=== PATIENT | female | born 1975 | race Caucasian/White ===

== ENCOUNTER 2018-02-12 10:39 | Day surgery (SDC) | payer BC ==
[~2018-02-12 10:39] MED LIST: DILAUDID IV PRN; ZOFRAN IV PRN
[2018-02-12] MEDS ORDERED: VERSED IV NR (11:00)
[2018-02-12] MEDS ORDERED: LACTATED RINGERS 1,000 ML IV SCH ×2 (11:00)
--- NOTE | 2018-02-12 11:29 | Anesthesia Consultation ---
Anesthesia Consult and Med Hx Date of service: 02/12/18 - Airway Anesthetic Teeth Evaluation: Good ROM Head & Neck: Adequate Mental/Hyoid Distance: Adequate Mallampati Class: Class I Intubation Access Assessment: Good - Pulmonary Exam CTA: Yes - Cardiac Exam Cardiac Exam: No Murmur - Pre-Operative Health Status ASA Pre-Surgery Classification: ASA2 Proposed Anesthetic Plan: General - Pre-Anesthesia Comment Pre-Anesthesia Comments: Acute Intermittent Porphyria. Hepatic Disease. Liver Disease. Anxiety - Pulmonary Hx Smoking: No Hx Asthma: No COPD: No - Cardiovascular System Hx Hypertension: No Hx Coronary Artery Disease: No - Central Nervous System Hx Seizures: No Hx Back Pain: Yes Hx Psychiatric Problems: Yes - Gastrointestinal Hx Gastroesophageal Reflux Disease: No - Endocrine Hx Renal Disease: Yes Hx Liver Disease: Yes - Other Systems Hx Alcohol Use: No Hx Substance Use: No Hx Cancer: No
--- NOTE | 2018-02-12 11:29 | Anesthesia Day of Surgery ---
Anesthesia Day of Surgery - Day of Surgery Patient Examined: Yes Patient H&P Reviewed: Yes Patient is NPO: Yes
[2018-02-12] MEDS ORDERED: ceFAZolin 2 GM in NACL 0.9% 100 ML IV ONE (12:21)
[2018-02-12] MEDS ORDERED: XYLOCAINE MPF 2% ONE (13:00)
[2018-02-12] MEDS ORDERED: ANCEF/STERILE WATER 2 GM/20 ML 2 GM/20 ML SYRINGE IV ONE (13:00)
--- NOTE | 2018-02-12 13:10 | Post Anesthesia Evaluation ---
- Post Anesthesia Evaluation Patient Participated: Yes Airway Patent: Yes Stable Respiratory Function: Yes Nausea/Vomiting: No Temp > 96.8F: Yes Pain Manageable: Yes Adequeate Hydration: Yes Anesthesia Complications: No
[2018-02-12] MEDS ORDERED: XYLOCAINE 1% 20 mL ONE (13:13)
[2018-02-12] MEDS ORDERED: HEPARIN 10,000 UNITS/10 ML ONE (13:14)
[2018-02-12] MEDS ORDERED: NACL 0.9% 250ML 0 ML ONE (13:14)
[2018-02-12] MEDS ORDERED: MARCAINE 0.25% INFILTRATI ONE ×2 (13:14→14:37)
[2018-02-12] MEDS ORDERED: D50W (25GM) Syringe IV ONE (13:47)
[2018-02-12] MEDS ORDERED: SUBLIMAZE ONE (13:48)
[2018-02-12] MEDS ORDERED: DIPRIVAN 10 MG/ML IV ONE ×3 (13:48→14:26)
[2018-02-12] MEDS ORDERED: NACL 0.9% 100 ML ONE (13:56)
[2018-02-12] MEDS ORDERED: KETALAR ONE (14:05)
[2018-02-12] MEDS ORDERED: HEPARIN 10,000 UNITS/10 ML IV ONE (14:34)
[2018-02-12] MEDS ORDERED: NACL 0.9% IR ONE (14:34)
[2018-02-12] MEDS ORDERED: NACL 0.9% IV ONE (14:35)
[2018-02-12] MEDS ORDERED: XYLOCAINE 1% 20 mL INFILTRATI ONE (14:36)
--- NOTE | 2018-02-12 15:13 | Fluoroscopy Report ---
Portable chest: Line placement. A port is in place on the left. The line enters the left jugular vein and the tip is in the low SVC. Mediastinal contour is unremarkable. The lungs are clear and fully inflated. Compression: Well-positioned port with no apparent complication.
--- NOTE | 2018-02-12 15:35 | Short Stay Summary ---
Short Stay Documentation Date of service: 02/12/18 - History Principal diagnosis: acute intermittent porphyria H&P: obtained from office - Allergies and Medications Current Medications: Allergies Sulfa (Sulfonamide Antibiotics) Allergy (Verified 02/09/18 14:05) porphyria attack Home Medications Medication Instructions Recorded Confirmed Last Taken Type FLUoxetine [PROzac] 20 mg PO QDAY 01/05/18 02/12/18 02/11/18 History [place] Carbonate [[place] 450 mg PO DAILY 01/05/18 02/12/18 02/11/18 History Carbonate ER] Active Medications Hydromorphone HCl (Dilaudid) 0.5 mg IV Q10MIN PRN PRN Reason: Pain , Severe (7-10) Stop: 02/12/18 23:59 Lactated Ringer's (Lactated Ringers) 1,000 mls @ 100 mls/hr IV DIRECT GHAZALA Lactated Ringer's (Lactated Ringers) 1,000 mls @ 100 mls/hr IV DIRECT GHAZALA Midazolam HCl (Versed) 2 mg IV PREOP NR Stop: 02/12/18 23:59 Ondansetron HCl (Zofran) 4 mg IV ONCE PRN PRN Reason: Nausea And Vomiting - Brief post op/procedure progress note Date of procedure: 02/12/18 Pre-op diagnosis: acute intermittent porphyria Post-op diagnosis: same Procedure: Placement of left IJ portacath using ultrasound guidance, fluoroscopy Anesthesia: MAC, local Findings: good placement of port without pneumothorax on post op cxr Surgeon: ИВАН GRANDA Estimated blood loss: minimal Pathology: none Condition: stable - Hospital course Hospital course: Patient was observed in PACU and discharged to home when criteria was met. - Disposition Condition at discharge: Good Disposition: DC-01 TO HOME OR SELFCARE Short Stay Discharge Plan Activity: no restrictions, other (avoid heavy lifting with left arm) Diet: regular Wound: open to air, other (may shower tomorrow, pat incisions dry, do not scrub. Do not submerge incisions in bath/hottubs/pools until healed.) Additional Instructions: Call surgeon's office if you have drainage or redness around the incisions. Some redness and bruising is normal. Use ice to the surgical incision site to help with swelling and bruising. Follow up with: MELISA CLEMONS MD [Primary Care Provider] - 7 Days ИВАН GRANDA DO [Staff Physician] - 14 Days Prescriptions: Ibuprofen 800 mg PO Q8H #30 tablet
[2018-02-12] MEDS ORDERED: MOTRIN PO PRN (16:12)
[2018-02-12 17:09] VITALS: BP 126/90
--- NOTE | 2018-02-13 17:11 | Post Anesthesia Evaluation ---
- Post Anesthesia Evaluation Patient Participated: Yes Airway Patent: Yes Stable Respiratory Function: Yes Nausea/Vomiting: No Temp > 96.8F: Yes Pain Manageable: Yes Adequeate Hydration: Yes Anesthesia Complications: No Block Receding Appropriately: Not Applicable Patient on Ventilator: No
--- NOTE | 2018-02-14 18:26 | Operative Report ---
Operative Report Operative Report: Date of procedure: 02/12/18 Pre-op diagnosis: acute intermittent porphyria Post-op diagnosis: same Procedure: Placement of left IJ portacath using ultrasound guidance, fluoroscopy Anesthesia: MAC, local Findings: good placement of port without pneumothorax on post op cxr Surgeon: ИВАН GRANDA Estimated blood loss: minimal Pathology: none Condition: stable HPI and indication: 42 yo F with acute intermittent porphyria was referred by Dr. Griffin, her product line manager for port placement for routine IVF infusions. The patient presents today for placement. All risks, benefits, alternatives to surgery were discussed with the patient and questions answered. Consent was obtained. Procedure in detail: The patient was identified in the preoperative area, taken back to operating room, placed on operating table in supine position. After anesthesia was induced both arms were tucked and upper chest and neck were prepped and draped in usual sterile fashion. A timeout was performed. The patient was placed in Trendelenburg position. Local anesthetic was infiltrated into the skin at the intended puncture site. The left subclavian vein was visualized on ultrasound, and seen as compressible. Access was attempted but the vein was difficult to access because the vein was very small. Therefore, this was aborted and the left internal jugular vein was located on ultrasound and seen as compressible. This was accessed on the first stick. There was return of dark red, nonpulsatile blood. The wire was threaded under fluoroscopy without resistance and positioning confirmed. The needle was then removed. Local anesthetic was infiltrated into the skin and subcutaneous tissue at the intended incision site. Using a 15 blade, an incision was made in the left upper chest and dissection carried down through the skin and subcutaneous tissue using Bovie electrocautery. Hemostasis was achieved along the way. A pocket for the port was then created bluntly and with electrocautery. The catheter was flushed and tunneled from the pocket to the wire. A breakaway catheter/dilator sheath then inserted over the wire under fluoroscopy, and the wire and dilator removed. The catheter was then inserted through the breakaway catheter which was then removed. The catheter sat flush under the skin. Using continuous fluoroscopy, the catheter was pulled back until the tip was visualized in the right atrium. The catheter was then cut to size and the port attached in the usual fashion. The port was then sutured into place to the pre- pectoral fascia using 2-0 Vicryl interrupted sutures. The wound was irrigated and hemostasis ensured. The port was tested with heparinized saline and there was return of blood and it flushed easily. The port was then instilled with 3000 units of heparin. The wound was again irrigated, and hemostasis ensured. The deep dermal layer was then closed with interrupted 3-0 Vicryl stitches. The skin incisions were closed with 4-0 Monocryl subcuticular stitches and skin glue. Intraoperative chest x-ray did show good positioning of the port, without evidence of pneumothorax. At the end of the case, all sponge, instrument, sharp counts were correct 2. The patient was awoken from anesthesia and taken to PACU in stable condition.
== END 2018-02-12 17:10 | disposition home or self-care (01) ==
LOC: OR 10:39
PROVIDERS: ATTEND Surgery
DX: E80.21 Acute intermittent (hepatic) porphyria (principal); F41.9 Anxiety disorder, unspecified; F32.9 Major depressive disorder, single episode, unspecified; Z79.84 Long term (current) use of oral hypoglycemic drugs; Z88.2 Allergy status to sulfonamides; Z98.890 Other specified postprocedural states
CPT/HCPCS: 36561; 76937; 77001; 81025; 82962; C1769; C1788; J0690; J1644; J2250; J2704; J3010; J7120; J7050

== ENCOUNTER 2019-05-03 11:15 | Day surgery (SDC) | payer BC, OTHER ==
[2019-05-03] MEDS ORDERED: SUBLIMAZE IV PRN (12:32)
--- NOTE | 2019-05-03 12:35 | Anesthesia Consultation ---
Anesthesia Consult and Med Hx Date of service: 05/03/19 - Airway Anesthetic Teeth Evaluation: Good ROM Head & Neck: Adequate Mental/Hyoid Distance: Adequate Mallampati Class: Class I Intubation Access Assessment: Good - Pulmonary Exam CTA: Yes - Cardiac Exam Cardiac Exam: RRR - Pre-Operative Health Status ASA Pre-Surgery Classification: ASA3 Proposed Anesthetic Plan: MAC - Pulmonary Hx Smoking: No Hx Respiratory Symptoms: No - Cardiovascular System Hx Hypertension: No Hx Heart Attack/AMI: No - Central Nervous System Hx Seizures: No CVA: No Hx Back Pain: Yes Hx Psychiatric Problems: Yes (anxiety) - Gastrointestinal Hx Gastroesophageal Reflux Disease: No - Endocrine Hx Renal Disease: No Hx Liver Disease: Yes (acute intermittent porphyria) Hx Insulin Dependent Diabetes: No Hx Non-Insulin Dependent Diabetes: No Hx Thyroid Disease: No - Other Systems Hx Obesity: No - Additional Comments Anesthesia Medical History Comments: No hx anesthetic complications. Reviewed anesthesia record from port placement performed 2018. Patient did well with MAC anesthetic with propofol, ketamine, versed and fentanyl without issue.
--- NOTE | 2019-05-03 12:35 | Anesthesia Day of Surgery ---
Anesthesia Day of Surgery - Day of Surgery Patient Examined: Yes Patient H&P Reviewed: Yes Patient is NPO: Yes
[2019-05-03] MEDS ORDERED: LACTATED RINGERS 1,000 ML IV SCH (13:00)
[2019-05-03] MEDS ORDERED: VERSED IV NR (13:00)
[2019-05-03] MEDS ORDERED: XYLOCAINE 1% 20 mL ONE (13:01)
[2019-05-03] MEDS ORDERED: MARCAINE 0.25% INFILTRATI ONE ×2 (13:01→13:32)
[2019-05-03] MEDS ORDERED: SUBLIMAZE ONE (13:07)
[2019-05-03] MEDS ORDERED: VERSED ONE (13:07)
[2019-05-03] MEDS ORDERED: KETAMINE 50 MG/ML-WATER SYRING ONE (13:08)
[2019-05-03] MEDS ORDERED: DIPRIVAN 10 MG/ML IV ONE (13:08)
[2019-05-03] MEDS ORDERED: NACL 0.9% IR ONE (13:33)
--- NOTE | 2019-05-03 13:53 | Short Stay Summary ---
Short Stay Documentation Date of service: 05/03/19 - History Principal diagnosis: acute porphyria H&P: obtained from office - Allergies and Medications Current Medications: Allergies Sulfa (Sulfonamide Antibiotics) Allergy (Verified 02/09/18 14:05) porphyria attack Home Medications Medication Instructions Recorded Confirmed Last Taken Type FLUoxetine [PROzac] 20 mg PO QDAY 01/05/18 05/03/19 05/01/19 09:00 History [place] Carbonate [[place] 450 mg PO DAILY 01/05/18 05/03/19 05/01/19 09:00 History Carbonate ER] Ibuprofen 800 mg PO Q8H #30 tablet 02/12/18 05/03/19 05/01/19 09:00 Rx Active Medications Fentanyl (Sublimaze) 50 mcg IV Q5MIN PRN PRN Reason: Pain , Severe (7-10) Stop: 05/03/19 20:00 Lactated Ringer's (Lactated Ringers) 1,000 mls @ 150 mls/hr IV DIRECT GAHZALA Last Admin: 05/03/19 12:43 Dose: 150 mls/hr Documented by: Midazolam HCl (Versed) 2 mg IV PREOP NR Stop: 05/03/19 23:59 Last Admin: 05/03/19 12:43 Dose: 2 mg Documented by: - Brief post op/procedure progress note Date of procedure: 05/03/19 Pre-op diagnosis: acute porphyria Post-op diagnosis: same Procedure: removal of left sided port Anesthesia: MAC, local Findings: removal of port in 2 pieces. No bleeding Surgeon: ИВАН GRANDA Estimated blood loss: minimal Pathology: list (port and catheter) Specimen disposition: to lab Condition: stable - Hospital course Hospital course: Pt observed in PACU and discharged to home in stable condition when criteria met - Disposition Condition at discharge: Good Disposition: DC-01 TO HOME OR SELFCARE Short Stay Discharge Plan Activity: no restrictions Diet: regular Wound: open to air, other (may shower tomorrow. Pat incision dry, do not scrub) Follow up with: MELISA CLEMONS MD [Primary Care Provider] - 7 Days ИВАН GRANDA DO [Staff Physician] - 14 Days
[2019-05-03] MEDS ORDERED: DEMEROL ONE (14:07)
[2019-05-03 15:20] VITALS: BP 125/92
--- NOTE | 2019-05-03 16:26 | Operative Report ---
Operative Report Operative Report: Date of procedure: 05/03/19 Pre-op diagnosis: acute porphyria Post-op diagnosis: same Procedure: removal of left sided port Anesthesia: MAC, local Findings: removal of port in 2 pieces. No bleeding Surgeon: ИВАН GRANDA Estimated blood loss: minimal Pathology: list (port and catheter) Specimen disposition: to lab Condition: stable Disposition of patient: to PACU HPI and indication: 43-year-old female with a history of acute porphyria who had a port placed last year presents for port removal. She was seen in the office and all risks, benefits, alternatives to surgery were discussed with the patient . Consent was obtained. All questions are answered. Procedure in detail: Patient was identified in the preoperative area and taken back to the operating room, placed on the operating room table in supine position. After anesthesia was induced the left upper chest was prepped and draped in usual sterile fashion and timeout performed. Local anesthetic was infiltrated into the skin at the intended incision site. An incision was made along the length of the prior left upper chest incision using a 15 blade. Dissection was carefully carried down through the skin and subcutaneous tissue using Bovie electrocautery until the port was encountered. The catheter was carefully from the surrounding tissues and the capsule dissected away using blunt dissection. The catheter was grasped between 2 hemostats and cut in between. The patient was placed in Trendelenburg position. The catheter portion of the port was removed and pressure was held for 10 minutes. Once pressure was removed, there was no bleeding from the tract. Next the subcutaneous port was dissected from the surrounding tissues using electrocautery and blunt dissection. This portion was also removed. Both pieces were passed off the table as a specimen. The subcutaneous tissue was then irrigated and irrigant returned clear. Small areas of bleeding were controlled with electrocautery and hemostasis carefully ensured. The incision was then closed in a layered fashion. The deep dermal layer was closed with interrupted 3-0 Vicryl sutures. The skin was closed with 4-0 Monocryl subcuticular running stitch and skin glue. At the end of the case, all sponge, instrument, sharp counts were correct 2. The patient was awoke from anesthesia and taken to PACU in stable condition.
== END 2019-05-03 16:25 | disposition home or self-care (01) ==
LOC: OR 11:15
PROVIDERS: ATTEND Surgery
DX: E80.29 Other porphyria (principal); F32.9 Major depressive disorder, single episode, unspecified; F41.9 Anxiety disorder, unspecified; Z45.2 Encounter for adjustment and management of vascular access device; Z88.2 Allergy status to sulfonamides; Z90.49 Acquired absence of other specified parts of digestive tract; Z98.890 Other specified postprocedural states; Z79.899 Other long term (current) drug therapy
CPT/HCPCS: 36590; 81025; 82962; 88300; J2175; J2250; J2704; J3010; J7120; 88302